=== PATIENT | male | born 1950 | race African-American/Black ===

== ENCOUNTER 2023-01-19 05:14 | Day surgery (SDC) | payer OTHER ==
[2023-01-15 14:29] VITALS: BMI 23.0
[~2023-01-19 05:14] MED LIST: BUPIVACAINE HCL/PF 0.25% (2.5MG/ML) 10 ML VIAL IJ ONE
[2023-01-19] MEDS ORDERED: BUPIVACAINE HCL/PF 0.25% (2.5MG/ML) 10 ML VIAL ONE (08:13)
[2023-01-19] MEDS ORDERED: HEPARIN NA (PORCINE) 5,000 UNITS/ML 1ML VIAL ONE (09:45)
[2023-01-19] MEDS ORDERED: ROCURONIUM BROMIDE 50 MG/5 ML SYRINGE ONE ×2 (10:18→11:13)
[2023-01-19] MEDS ORDERED: PROPOFOL 40 ML ONE (10:18)
[2023-01-19] MEDS ORDERED: MIDAZOLAM HCL 2 MG/2 ML SINGLE DOSE VIAL ONE (10:19)
[2023-01-19] MEDS ORDERED: HEPARIN NA (PORCINE) 5,000 UNITS/ML 1ML VIAL SQ ONE (10:23)
[2023-01-19] MEDS ORDERED: ceFAZolin SODIUM 1 GM VIAL IVPB ONE (10:30)
[2023-01-19] MEDS ORDERED: PHENYLEPHRINE HCL 10 MG/1 ML SINGLE DOSE VIAL ONE (10:36)
[2023-01-19] MEDS ORDERED: ONDANSETRON 4 MG/2 ML VIAL IVPUSH PRN (11:00)
[2023-01-19] MEDS ORDERED: oxyCODONE HCL 5 MG TABLET PO PRN ×3 (11:00→16:47)
[2023-01-19] MEDS ORDERED: LACTATED RINGERS SOLUTION 1,000 ML IV SCH (11:00)
[2023-01-19] MEDS ORDERED: BUPIVACAINE HCL/PF 0.25% (2.5MG/ML) 10 ML VIAL IJ ONE (11:03)
[2023-01-19] MEDS ORDERED: METOPROLOL TARTRATE 5 MG/5 ML VIAL ONE (11:37)
[2023-01-19] MEDS ORDERED: hydrALAZINE HCL 20 MG/ML VIAL ONE ×2 (11:37→12:36)
[2023-01-19] MEDS ORDERED: GLYCOPYRROLATE 0.2 MG/1 ML VIAL ONE (11:37)
[2023-01-19] MEDS ORDERED: NEOSTIGMINE METHYLSULFATE 0.5 MG/1 ML - 10 ML MDV ONE ×2 (11:49→12:43)
[2023-01-19] MEDS ORDERED: PROPOFOL 20 ML ONE (11:49)
[2023-01-19] MEDS ORDERED: LIDOCAINE HCL/PF 2% SDV 5ML VIAL ONE (11:49)
[2023-01-19] MEDS ORDERED: SUCCINYLCHOLINE CHLORIDE 200 MG/10 ML SYRINGE ONE (12:06)
[2023-01-19] MEDS ORDERED: KETOROLAC TROMETHAMINE 30 MG/1 ML VIAL ONE (12:28)
[2023-01-19] MEDS ORDERED: ACETAMINOPHEN 500 MG TABLET (FP) PO PRN (16:45)
[2023-01-19] MEDS ORDERED: POLYETHYLENE GLYCOL (HEALTHYLAX) 3350 17 GM PACKET PO PRN (17:13)
[2023-01-19] MEDS ORDERED: oxyCODONE HCL 5 MG TABLET ONE (18:37)
[2023-01-19 21:04] VITALS: RESP 18
[2023-01-20 10:10] LABS: HEMATOCRIT 39.3 % (35.4-49); HEMOGLOBIN 12.8 GM/dL (11.7-16.9); MCH 30.2 pg (25.7-33.7); MCHC 32.5 g/dl (32.0-35.9); MEAN CELL VOLUME 92.9 fl (80-96); MEAN PLT VOLUME 8.9 fl (7.5-11.1); PLATELET COUNT 157 10^3/uL (134-434); RBC 4.23 M/mm3 (4.00-5.60); RDW 13.3 % (11.9-15.9); WHITE BLOOD COUNT 8.5 K/mm3 (4.0-10.0)
[2023-01-20 10:33] LABS: POTASSIUM 3.8 mmol/L (3.5-5.1)
[2023-01-20 10:34] LABS: CALCIUM 8.3 mg/dL (8.5-10.1)
[2023-01-20 10:35] LABS: BLOOD UREA NITROGEN 15.8 mg/dL (7-18); MAGNESIUM 2.1 mg/dL (1.8-2.4)
[2023-01-20 10:38] LABS: CREATININE 1.2 mg/dL (0.55-1.3); PHOSPHOROUS 2.6 mg/dL (2.5-4.9)
[2023-01-20 11:04] VITALS: BP 102/57; PULSE 83; TEMP 99
== END 2023-01-20 11:23 | disposition home or self-care (01) ==
LOC: SUATTDRO 05:14 → JASU-SURG 05:14 → J5S 20:13 → JASU-SURG 01-20 11:23
PROVIDERS: ATTEND Internal Medicine
PROC: 8E0W4CZ Robotic Assisted Procedure of Trunk Region, Percutaneous Endoscopic Approach (ICD-10-PCS; 2023-01-19)
PROC: 0YU64JZ Supplement Left Inguinal Region with Synthetic Substitute, Percutaneous Endoscopic Approach (ICD-10-PCS; principal; 2023-01-19 09:00)
DX: K40.90 Unilateral inguinal hernia, without obstruction or gangrene, not specified as recurrent (principal)
CPT/HCPCS: 49650; S2900; 36415; 80048; 83735; 84100; 85027; 94760; C1781; J1644